=== PATIENT | female | born 2000 ===

== ENCOUNTER 2018-06-30 07:31 | Outpatient (CLI) | payer MEDICAID ==
--- NOTE | 2018-06-30 09:19 | ULT ---
PELVIC ULTRASOUND INCLUDING TRANSABDOMINAL AND TRANSVAGINAL IMAGING VASCULAR DUPLEX WITH COLOR AND SPECTRAL DOPPLER IMAGING: History: 17-year-old female with history of pelvic pain. FINDINGS: The uterus measures 7.5 x 2.4 x 3.9 cm. Endometrium is 0.1 cm. Right ovary 2.8 x 2.3 x 1.9 cm contain ing a 1 x 1.5 cm small follicle cyst. Left ovary measures 1.6 x 1.6 x 2.7 cm. The upper uterus has a somewhat arcuate type appearance. No abnormal fluid collection. Vascular flow is documented to both o varies. IMPRESSION: Unremarkable pelvic ultrasound. POS: [facility]
== END 2018-06-30 07:32 | disposition home or self-care (01) ==
LOC: BICULT 07:31
PROVIDERS: ATTEND Family Medicine
DX: R10.2 Pelvic and perineal pain (principal)
CPT/HCPCS: 76856